=== PATIENT | male | born 1965 | race Caucasian/White ===

== ENCOUNTER → 2018-04-02 | Outpatient (CLI) | payer BC, OTHER ==
--- NOTE | 2018-04-07 09:36 | 24HR ---
[facility] [place] [address] 24 HR ELECTROCARDIOGRAM REPORT Name: ELBERT LANGFORD Room #: REG CL [facility]#: [id number] ������������� Admission: 04/02/18 ������������� Attend Phys: Bradly Noel, Discharge: ��� ������������� ��� Date of : 65 Date of Service: 03/27/18 1204 �� Report #: [id number] �������� ��������������������������������������������[id number] THIS REPORT FOR: //name// [facility] Test Date: 2018-03-27 Test Time: 12:04:00 Pat Name: ELBERT LANGFORD Department: Room: Gender: Die Cutter Operator: : 1965 Requested By: Bradly Noel Order Number: [id number] Reading MD: Jorge Fam Interpretive Statements 1. The study duration was 48 hours and the technical quality was good. Occasional lead dropout. Predominant rhythm sinus rhythm at an average heart rate of 65 bpm, range 45-118 bpm. Longest RR interval 1.5 seconds 2. Rare isolated atrial premature complexes. No heart block. No episodes of atrial fibrillation or atrial flutter. No pauses. No PSVT 3. One single premature ventricular complexes. No episodes of ventricular tachycardia. 4. 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
== END ==
LOC: CV 11:07
DX: R00.2 Palpitations (principal)